=== PATIENT | male | born 2000 | race African-American/Black ===

== ENCOUNTER 2019-10-18 12:53 | Emergency (ER) | payer OTHER ==
[~2019-10-18] VITALS: Ht 185.4 cm; Wt 56.0 kg
[2019-10-18 13:28] LABS: ABSOLUTE NEUTROPHILS 4.9 thou/uL (1.4-8.2); BASOPHILS 0.4 % (0.0-2.0); EOSINOPHILS 0.3 % (0.0-3.0); HEMATOCRIT 48.9 % (42.0-52.0); HEMOGLOBIN 16.1 gm/dL (14.0-18.0); LYMPHOCYTES 24.3 % (24.0-44.0); MCH 30.2 pg (26.0-34.0); MCHC 33.1 g/dL (28.0-37.0); MCV 91.5 fL (80.0-100.0); MONOCYTES 7.4 % (1.0-8.0); PLATELET COUNT 211 thou/uL (150-400); POLYS 67.6 % (36.0-66.0); RBC 5.34 mil/uL (4.50-6.00); WBC 7.2 thou/uL (4.0-11.0)
[2019-10-18 13:40] LABS: ANION GAP 12 mmol/L (7-16); BUN 15 mg/dL (7-18); CALCIUM 10.1 mg/dL (8.5-10.1); CHLORIDE 103 mmol/L (98-107); CO2 29 mmol/L (21-32); CREATININE 1.4 mg/dL (0.7-1.3); GLUCOSE 146 mg/dL (74-106); POTASSIUM 3.6 mmol/L (3.5-5.1); SODIUM 144 mmol/L (136-145)
[2019-10-18 13:48] LABS: TROPONIN-I <0.06 ng/mL (<0.06)
--- NOTE | 2019-10-18 14:37 | EKG ---
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 : 2000 Requested By: Rene Alfredo Order Number: [id number] MD: Jeronimo Barrientos Measurements Intervals [place] Rate: 82 P: 265 MS: 279 QRS: 98 QRSD: 91 T: 52 QT: 361 QTc: 422 Interpretive Statements Ectopic atrial rhythm Prolonged MS interval Borderline right axis deviation ST elevation consider early repolarizaion Baseline wander in lead(s) V4 No previous ECG available for comparison Electronically Signed On 10-18-2019 14:37:12 [employer] by Jeronimo Barrientos [email or web address] <ELECTRONICALLY SIGNED> By: Jeronimo Barrientos MD, [facility] 10/18/19 1437 [id number] Jeronimo Barrientos MD, [facility] /EPI
[2019-10-18] MEDS ORDERED: VISTARIL 25 MG25 M1 PO (14:40)
[2019-10-18 14:53] VITALS: BP 103/58
== END 2019-10-18 14:54 | disposition home or self-care (01) ==
LOC: ER 12:53
PROVIDERS: Emergency Medicine
DX: F41.0 Panic disorder [episodic paroxysmal anxiety] (principal); R07.9 Chest pain, unspecified